=== PATIENT | female | born 1960 | race African-American/Black ===

== ENCOUNTER 2019-11-21 22:38 | Emergency (ER) | payer SELFPAY ==
[~2019-11-21] VITALS: Ht 162.6 cm; Wt 93.0 kg
--- NOTE | 2019-11-21 23:11 | Emergency Department Note ---
History of Present Illnes History of Present Illness Chief Complaint: Hypertension History of Present Illness This is a 59 year old female, with a history of hypertension, IDDM, hyperlipi demia, and hypothyroidism who presents for evaluation of elevated blood pressure and anxiety. Patient states that last night she was talking on the phone with a friend, when she became anxious and hyperventilating. She checked her blood pressure, and states that "the bottom number was 100," which made her worried and he even more anxious. Her friend talked with her, had her breathe in a paper bag, and then she listened to some relaxing music and was able to go to sleep. This evening, patient again began to feel anxious and could feel that possible panic attack was developing. She again checked her blood pressure, and the bottom number was 100, so she decided to come to the ER for evaluation. Patient took her blood pressure medicine tonight about 7:30 PM, and she denies missing any dosages. Patient admits to taking some DayQuil for sinus and allergy symptoms two days ago. I explained to the patient that this likely elevated her blood pressure, as most of these formulations contain Sudafed. Patient states that prior to these past 2 days, she had two panic attacks approximately one year ago, with no recurrent symptoms until this past weekend. Patient moved here 2 months ago from [place], and she is currently living with her cousin, her cousin's spouse and their son. She states that she has not been sleeping well lately, and she is waking up during the night after only being asleep for several hours. She then has difficulty going back to sleep. She denies any major stress, in her life right now, other than she has multiple friends who have been sick with Covid 19 and/or have family members who have been seriously ill. She admits that she may be worrying about the health of her friends, as well as herself. She denies any chest pain, tightness, shortness of breath, numbness, tingling, headache, visual changes, dizziness, or lightheadedness. Patient states that she currently feels much better, as far as her anxiety goes, but she is concerned about her blood pressure. Historian: Patient Arrival Mode: Car National Expansion Recruiter Required: No Onset (how long ago): day(s) (2) Location: generalized Quality: anxious, hyperventillating Radiation: Reports non-radiation Severity: moderate Onset quality: sudden Duration (how long): day(s) (2) Timing of current episode: sporadic Progression: partially resolved (patient only feels "slightly anxious" at this time. ) Chronicity: recurrent Context: Reports new medications (pt took OTC Dayquil 2 days ago;); Denies recent illness Relieving factors: none Exacerbating factors: none Associated symptoms: Reports denies other symptoms; Denies chest pain, Denies fever/chills, Denies headaches, Denies nausea/vomiting, Denies shortness of breath Treatments prior to arrival: none Risk factors: HTN, IDDM Past Medical/Family History Physician Review I have reviewed the patient's past medical and family history. Any updates have been documented here. Past Medical History Recent Fever: No Clinical Suspicion of Infectio: No New/Unexplained Change in Ment: No Past Medical History: Hypertension, Diabetes (IDDM), Hypothyroidism, Hyperlipedemia Past Surgical History: Hysterectomy Other Surgery: Thryroidectomy Social History Smoking Cessation: Never Smoker Alcohol Use: None Any Illegal Drug Use: No TB Exposure/Symptoms: No Physically hurt or threatened: No Family History Family history of heart diseas: No Other Last Tetanus: unknown Any Pre-Existing Lines (PICC,: No Review of Systems Review of Systems Constitutional: Denies chills, Denies fever EENTM: Denies blurred vision, Denies double vision Cardiovascular: Denies chest pain, Denies palpitations Respiratory: Reports no symptoms; Denies cough, Denies dyspnea, Denies dyspnea on exertion Gastrointestinal: Denies abdominal pain, Denies nausea, Denies vomiting Musculoskeletal: Denies muscle pain, Denies neck pain Integumentary: Denies change in color Neurological: Denies headache, Denies numbness, Denies tingling, Denies weakness Psychological: Reports anxiety (denies prevoius treatment for anxiety. She was seen in the ED last year in [place], when she had the two previous episodes;); Denies emotional problems Hematological/Lymphatic: Reports no symptoms Review of other systems: All other systems negative Physical Exam Related Data Vital signs reviewed: Yes Physical Exam CONSTITUTIONAL Constitutional: Present well-developed, Present well-nourished, Present morbidly obese HENT HENT: Present normocephalic, Present atraumatic, Present oropharynx clear/moist, Present nose normal HENT L/R: Present left ext ear normal, Present right ext ear normal EYES Eyes: Reports PERRL, Reports conjunctivae normal NECK Neck: Present ROM normal; Absent cervical adenopathy PULMONARY Pulmonary: Present effort normal, Present breath sounds normal CARDIOVASCULAR Cardiovascular: Present regular rhythm, Present heart sounds normal, Present capillary refill normal, Present normal rate, Present palpable pulses, Present LLE edema (trace pedal edema;), Present RLE edema (trace pedal edema;); Absent murmur GASTROINTESTINAL Abdominal: Present soft, Present nontender GENITOURINARY Genitourinary: Present exam deferred SKIN Skin: Present warm, Present dry MUSCULOSKELETAL Musculoskeletal: Present ROM normal; Absent tenderness NEUROLOGICAL Neurological: Present alert, Present oriented x 3; Absent cranial nerve deficit, Absent weakness PSYCHOLOGICAL Psychological: Present mood/affect normal, Present behavior normal Results Laboratory Laboratory No testing performed; Assessment & Plan Medical Decision Making MDM Patient's blood pressure came down nicely, without intervention. She did receive 1 mg of lorazepam orally, which seemed to resolve her anxiety. Patient was provided with a prescription for lorazepam, to be taken as needed. She is adv ised to discuss her anxiety, if it persists, with her new primary care provider with whom she has an appointment scheduled on 12/26/2019. Patient moved here from [place] 2 months ago. - Establish care with a PCP, as discussed, and discuss your anxiety, if it is persistent. - AVOID over the counter "sinus medications," as many contain Sudafed, which can elevate the blood pressure. - Follow a Low Sodium diet, which will help to control your blood pressure. - Take your blood pressure medications every day! Assessment & Plan Final Impression: (1) Hypothyroidism (2) IDDM (insulin dependent diabetes mellitus) (3) Anxiety (4) Hypertension Depart Disposition: HOME, SELF-detention Meds Active Scripts Lorazepam (ATIVAN) 1 Mg Tablet, 1 TAB PO BID PRN for anxiety, #20 TAB 0 Refills Prov:ARA AMIN MD 11/22/19 ARA AMIN MD Nov 21, 2019 23:11
[2019-11-21] MEDS ORDERED: LORAZEPAM 1 MG TAB PO ONE (23:45)
[2019-11-21] MEDS ORDERED: LORAZEPAM 0.5 MG TAB ONE (23:50)
[2019-11-21 23:58] VITALS: BP 143/77
[2019-11-22] MEDS ORDERED: ATIVAN1 MG PO (00:25)
== END 2019-11-22 00:45 | disposition home or self-care (01) ==
LOC: FSED 23:11
DX: I10 Essential (primary) hypertension (principal); E11.9 Type 2 diabetes mellitus without complications; E03.9 Hypothyroidism, unspecified; F41.9 Anxiety disorder, unspecified; Z82.49 Family history of ischemic heart disease and other diseases of the circulatory system
CPT/HCPCS: 99283

== ENCOUNTER 2020-01-02 22:55 | Observation (INO) | payer SELFPAY ==
[~2020-01-02] VITALS: Ht 162.6 cm; Wt 93.0 kg
[~2020-01-02 22:55] MED LIST: ATIVAN1 MG PO
--- NOTE | 2020-01-02 23:41 | Emergency Department Note ---
History of Present Illnes History of Present Illness History of Present Illness This is a 59 year old female with PMHx of HTN, DM, and anxiety who present with complaint of burning CP. States noticed blood on toilet paper after BM and shortly after that developed CP. No SOB, N/V, diaphoresis. States has had similar CP in the past which was burning. First episode 1 year ago. [facility] episodes have gradually been increasing in frequency to now 2X a week. Not exertional. Has no history of GERD. Had tater tots and chicken strips @ around 2030 tonight. No LE pain or swelling. No recent surgery. No immobilization. No recent travel. Moved here from [place] 2 years ago. Historian: Patient Arrival Mode: Car Nanotechnology Engineering Technologist Required: No Onset (how long ago): hour(s) Location: mid chest Quality: burning Radiation: Reports non-radiation Severity: moderate Onset quality: sudden Duration (how long): hour(s) Timing of current episode: constant Progression: improving Relieving factors: none Exacerbating factors: none Associated symptoms: Reports chest pain; Denies cough, Denies diaphoresis, Denies fever/chills, Denies headaches, Denies nausea/vomiting, Denies shortness of breath Past Medical/Family History Physician Review I have reviewed the patient's past medical and family history. Any updates have been documented here. Past Medical History Past Medical History: Hypertension, Diabetes, Hypothyroidism, Hyperlipedemia Past Surgical History: Hysterectomy Other Surgery: Thryroidectomy Social History Smoking Cessation: Never Smoker Family History Family history of heart diseas: Yes (Grandmother @ sometime after 60 years of age) Other Last Tetanus: unknown Review of Systems Review of Systems Constitutional: Denies chills, Denies diaphoresis, Denies fever EENTM: Reports no symptoms Cardiovascular: Reports as per HPI, Reports chest pain; Denies palpitations, Denies syncope Respiratory: Denies cough, Denies dyspnea Gastrointestinal: Denies abdominal pain, Denies constipation, Denies diarrhea, Denies nausea, Denies vomiting Genitourinary: Denies discharge Musculoskeletal: Denies joint pain, Denies muscle pain Integumentary: Denies lumps, Denies rash, Denies ecchymosis Neurological: Denies headache, Denies numbness, Denies paresthesia, Denies tingling, Denies weakness Psychological: Reports anxiety Hematological/Lymphatic: Denies easy bleeding Physical Exam Related Data Allergies: Coded Allergies: No Known Allergies (Unverified , 01/02/20) Physical Exam CONSTITUTIONAL Constitutional: Present well-developed, Present well-nourished HENT HENT: Present normocephalic, Present atraumatic, Present oropharynx clear/moist, Present nose normal HENT L/R: Present left ext ear normal, Present right ext ear normal EYES Eyes: Reports PERRL, Reports conjunctivae normal NECK Neck: Present ROM normal PULMONARY Pulmonary: Present effort normal, Present breath sounds normal; Absent respiratory distress CARDIOVASCULAR Cardiovascular: Present regular rhythm, Present heart sounds normal, Present capillary refill normal, Present normal rate, Present other (no pain with palpation of chest. Pain not reproducable with active or passive ROM without or against resistance) GASTROINTESTINAL Abdominal: Present soft, Present bowel sounds normal, Present other (Rectal: exteral hemmorhoids, non tender, no mass); Absent nontender (mild epigastric tenderness. No RUQ tenderness, no Dubois's), Absent tender, Absent guarding, Absent mass, Absent rebound GENITOURINARY SKIN Skin: Absent rash, Absent bruising MUSCULOSKELETAL Musculoskeletal: Absent edema, Absent deformity, Absent tenderness NEUROLOGICAL Neurological: Present alert, Present oriented x 3; Absent abnormal gait PSYCHOLOGICAL Psychological: Present other (anxious) Results Laboratory Lab results reviewed: Yes Laboratory comments WBC 15.5, HGB 12.9, HCT 42.3, PLT 251. GLU 146, otherwise CMP WNL, Troponin 0.05 Imaging Imaging results reviewed: Yes Impressions EXAMINATION: CXR 2 VIEW - HOPD INDICATION: chest pain COMPARISON: None FINDINGS: TUBES and LINES: None. LUNGS: Normal lung volumes. Lungs are clear. No consolidations. Probable calcified granuloma in the lower right lung. PLEURA: No pleural effusion or pneumothorax. HEART AND MEDIASTINUM: The cardiomediastinal silhouette is unremarkable. BONES AND SOFT TISSUES: No acute osseous lesion. Postsurgical changes at the thoracic inlet. UPPER ABDOMEN: No free air under the diaphragm. IMPRESSION: No acute thoracic radiographic abnormality. Signed by: Mekhi Raya MD on 01/03/2020 12:23 AM Procedures 12 Lead ECG Interpretation ECG Interpretation : ECG: ECG 1 Nanotechnology Engineering Technologist: Interpreted by ED physician Date: Jan 02, 2020 Prior ECG tracings: reviewed Rhythm: sinus tachycardia BPM: 101 QRS axis: normal ST segments normal: Yes T waves normal: Yes Clinical Impression: abnormal ECG Additional Comments LVH Stool Hemoccult Procedural steps taken: stool placed in appropriate area, developer placed on stool, developer placed on contol areas, control appropriately pos & neg Hemoccult result: negative Clinical Decision Tools HEART Score HEART Score: HEART Score Response (Comments) Value History Slightly suspicious 0 EKG Normal 0 Age 45 - 65 1 Risk factors 3 or more risk factors OR hx of CAD 2 Troponin < or = to normal limit Total 3 Assessment & Plan Medical Decision Making MDM Reviewed old chart: seen here November 2019. Did not have PCP at that time (has since established). Presented with > BP and anxiety at that time. Given benzo in ED during November visit and D/C'ed home. Today, patient with atypical burning CP that did not resolve with GI cocktail. Warrants CP rule out due to HTN and DM, Hx of SD in Grandmother, and increasing frequency of episodes. Patient with episode of blood on toilet paper after BM tonight. Guiac negative. Suspect episode due to hemorrhoids. Instructed patient to followup with GI after cardiac ruled out as source of CP. Reassessment Reassessment time: 00:12 Reassessment 00:12 pain still present after GI cocktail Assessment & Plan Final Impression: (1) Chest pain (2) Bleeding hemorrhoids (3) Diabetes (4) Hypertension (5) Anxiety (6) Hypothyroidism Depart Disposition: ADMITTED Home Meds Active Scripts Lorazepam (ATIVAN) 1 Mg Tablet, 1 TAB PO BID PRN for anxiety, #20 TAB 0 Refills Prov:ARA AMIN MD 11/22/19 SHAWN NOWAK MD Jan 02, 2020 23:41
[2020-01-02] MEDS ORDERED: FAMOTIDINE 20 MG/2 ML VIAL IV STA (23:42)
[2020-01-02] MEDS ORDERED: DONNATAL/LIDOCAINE/MAALOX 30 ML SUSP PO ONE (23:45)
[2020-01-02] MEDS ORDERED: BELLADONNA ALK/PHENOBARBITAL 5 ML UDC ONE (23:55)
[2020-01-02] MEDS ORDERED: LIDOCAINE VISC 2% SOLN 15 ML UDC ONE (23:55)
[2020-01-02] MEDS ORDERED: MAGNESIUM/ALUMINUM/SIMETHICONE 30 ML UDC ONE (23:55)
[2020-01-03] MEDS ORDERED: ASPIRIN 325 MG TAB PO ONE
--- NOTE | 2020-01-03 00:26 | Diagnostic Imaging Report ---
EXAMINATION: CXR 2 VIEW - HOPD INDICATION: chest pain COMPARISON: None FINDINGS: TUBES and LINES: None. LUNGS: Normal lung volumes. Lungs are clear. No consolidations. Probable calcified granuloma in the lower right lung. PLEURA: No pleural effusion or pneumothorax. HEART AND MEDIASTINUM: The cardiomediastinal silhouette is unremarkable. BONES AND SOFT TISSUES: No acute osseous lesion. Postsurgical changes at the thoracic inlet. UPPER ABDOMEN: No free air under the diaphragm. IMPRESSION: No acute thoracic radiographic abnormality. Signed by: Mekhi Raya MD on 01/03/2020 12:23 AM
[2020-01-03] MEDS ORDERED: ONDANSETRON HCL INJ 2MG/ML 2ML 2 MG/ML VIAL IV PRN (01:00)
[2020-01-03] MEDS ORDERED: SODIUM CHLORIDE FLUSH 10 ML SYR INJ PRN (01:00)
--- OUTSIDE RECORDS SUMMARY | 2020-01-03 01:08 | XMS REPORT ---
Author Author Jewels [facility] Organization Unknown Address Unknown Phone Unavailable Care Team Providers Care Rock Drill Operator Name Role Phone Martha Parker Unavailable PROBLEMS Condition Status Date Provider Notes Screening for std active Martha Elena Anxiety active Martha Elena Diabetes mellitus, type 2, uncontrolled active L in Elena Hypertension, uncontrolled active Martha Elena BMI 35.0-35.9 active Martha Elena Obesity active Martha Elena ENCOUNTERS Date Type Provider Location Encounter Diagn osis - Ambulatory Encounter Martha Elena Martha Elena UNK - Ambulatory Encounter Martha Elena Martha Elena [facility] UNK - Ambulatory Encounter Martha Eelna Martha Elena UNK - Ambulatory Encounter Martha Elena Martha Elena UNK - Ambulatory Encounter Martha Elena Martha D ai Maddison Ventura ObesityBMI 35.0-35.9Hyperten isac, uncontrolledDiabetes mellitus, type 2, uncontrolledAnxietyScreening for std VITAL SIGNS Date Observation Value Provider pulse rate #2 84 Maddison armstrong " blood pressure, diastolic, second observation 84 mm[Hg] Maddison Whitehead " blood pressure, systolic, second observation 154 mm[Hg] Maddison Whitehead " temperature E&M 97.9 [degF] Maddison armstrong " pulse rate 80 /min Maddison armstrong " blood pressure, diastolic 87 mm[Hg] Bunny Whitehead " blood pressure, systolic 142 mm[Hg] Maddison Whitehead " respiratory rate E&M 16 /min Maddison nicole " oxygen saturation, oximetry 97 % Akosua Whitehead " weight E&M 206.25 lbs. Maddison armstrong " weight in kilograms E&M 93.75 kg Maddison Whitehead " height E&M 64 [in_i] Maddison armstrong " height in centimeters E&M 162.56 cm Bunny Whiethead " method used to obtain blood pressure automatic Maddison Ventura " Blood Pressure Position 01 sitting Jeisonshavon urrutia Ventura " blood pressure, site #1 left arm Maddison Whitehead " temperature site oral Maddison kelly Allergies No Known Allergy Information REASON FOR REFERRAL No Information Available RESULTS Date Observation Value Provider Reference Range Interpretati on Location hepatitis B surface antigen Negative [facility] Negative " thyroid stimulating hormone, serum 0.835 u[iU]/mL [facility] 0.450-4.500 " hepatitis C antibody, serum <0.1 [facility] 0.0-0.9 " HIV-CMIA (Chemiluminescent Microparticle Immuno Assay) Non Reactive [facility] Non Reactive " rapid plasma reagin antibody, serum Non Reactive [facility] Non Reactive " hemoglobin A1C, blood, as % of total hemoglobin 8.1 % [facility] 4.8-5.6 High " microalbumin/creatinine ratio, urine 52 MG/G CREAT [facility] 0-29 High " microalbumin/total urine volume 57.3 mg/L [facility] Not Est ab. " creatinine, random, urine 109.4 mg/dL [facility] Not Estab. " LDL cholesterol, serum 45 mg/dL [facility] 0-99 " very low density lipoproteins 25 mg/dL [facility] 5-40 " HDL cholesterol, serum 45 mg/dL [facility] >39 " triglyceride, serum, fasting 123 mg/dL [facility] 0-149 " cholesterol, serum 115 mg/dL [facility] 100-199 " alanine aminotransferase (SGPT), serum 31 1/L [facility] 0-32 " aspartate aminotransferase (SGOT), serum 26 1/L [facility] 0-40 " alkaline phosphatase, serum 80 1/L [facility] 39-117 " bilirubin, serum, total 0.2 mg/dL [facility] 0.0-1.2 " albumin/globulin ratio, serum 1.8 [facility] 1.2-2.2 " globulin, serum 2.4 [facility] 1.5-4.5 " albumin, serum 4.4 g/dL [facility] 3.8-4.9 " protein, total, serum 6.8 g/dL [facility] 6.0-8.5 " calcium, serum 10.0 mg/dL [facility] 8.7-10.2 " carbon dioxide, venous blood 26 mmol/L [facility] 20-29 " chloride, serum 102 mmol/L [facility] 96-106 " potassium, serum 4.8 mmol/L [facility] 3.5-5.2 " sodium, serum 143 mmol/L [facility] 134-144 " urea nitrogen/creatinine ratio, serum 13 [facility] 9 -23 " eGFR if 76 mL/min/((173/100).m2) [facility] >59 " Estimated Glomerular Filtration Rate (calc) 66 m L/min/((173/100).m2) [facility] >59 " creatinine, serum 0.96 mg/dL [facility] 0.57-1.00 " urea nitrogen, blood 12 mg/dL [facility] 6-24 " blood glucose, random 138 mg/dL [facility] 65-99 High " immature granulocytes, percentage of total cells, bloo d 1 % [facility] Not Estab. " basophil count, absolute 0.1 x10E3/uL [facility] 0.0-0.2 " Eosinophil Absolute Count 0.3 X10E3/UL [facility] 0.0-0.4 " monocyte count, blood, automated 0.9 X10E3/UL [facility] 0.1 -0.9 " lymphocyte count, blood, automated 2.6 X10E3/UL [facility] 0 .7-3.1 " Absolute Neutrophils 9.1 X10E3/UL [facility] 1.4-7.0 High " basophils as percent of blood leukocytes 1 % [facility] Not Estab. " eosinophils as percent of blood leukocytes 2 % [facility] Not Estab. " monocytes as percent of blood leukocytes 7 % [facility] Not Estab. " lymphocytes as percent of blood leukocytes 20 % [facility] Not Estab. " neutrophils as percent of blood leukocytes 69 % [facility] Not Estab. " platelet count 266 X10E3/UL [facility] 150-450 " red blood cell distribution width 14.4 % [facility] 11.7- 15.4 " mean corpuscular hemoglobin concentration, RBC 31.7 G/DL [facility] 31.5-35.7 " mean corpuscular hemoglobin, RBC 28.3 pg [facility] 26.6-3 3.0 " mean corpuscular volume, RBC 89 fL [facility] 79-97 " hematocrit, blood 39.7 % [facility] 34.0-46.6 " hemoglobin, blood 12.6 g/dL [facility] 11.1-15.9 " erythrocyte (RBC) count 4.45 X10E6/UL [facility] 3.77-5.28 " leukocyte count, blood 13.0 X10E3/UL [facility] 3.4-10.8 Hi hemoglobin A1C, blood, as % of total hemoglobin 8.0 % L in Elena " blood glucose, fasting 148 mg/dL Maddison Whitehead HISTORY OF IMMUNIZATIONS No Information Available HISTORY OF MEDICATION USE Medication Instructions Dates Provider Comments SERTRALINE HCL 25 MG ORAL TABLET Take 1 tablet by mouth daily 29/12/19 Martha Parker JANUVIA 100 MG ORAL TABLET Take 1 tablet by mouth daily Martha Parker ASPIRIN 81 MG ORAL TABLET DELAYED RELEASE 1 by mouth every day 2 Martha Parker JARDIANCE 25 MG ORAL TABLET Take 1 tablet by mouth daily Martha Parker HYDROCHLOROTHIAZIDE 12.5 MG ORAL CAPSULE 1 by mouth every day 29/12/19 Martha Parker VALSARTAN 40 MG ORAL TABLET Take 1 tablet by mouth daily Martha Parker ROSUVASTATIN CALCIUM 20 MG ORAL TABLET Take 1 tab By Mouth t todd at bedtime Martha Parker HUMULIN R U-500 KWIKPEN 500 UNIT/ML SUBCUTANEOUS SOLUT ION PEN-INJECTOR Take 135 units AM and 85 units PM Martha Parker METFORMIN HCL 1000 MG ORAL TABLET 1 by mouth twice a day Martha Parker SOCIAL HISTORY Date Observation Value Provider family support living with cousin Martha Parker " social history reviewed E&M reviewed today Martha Parker " Exercise Program Referral T Martha Esteban i " Weight Management Counseling Provided T Martha Parker " Nutrition intervention T Martha Parker " patient considered to be homeless No Maddison Whitehead " drug use, illicit Never Maddison aguayo " alcohol use Never Maddison armstrong " is there any chance that you could be ? No Maddison Whitehead " passive cigarette smoke exposure No Maddison Whitehead " if the patient is using/has used a vaping item, Current, Former, Never Used, Not asked No Maddison Whitehead " smoking status never smoker Maddison Vargasskyler armstrong FUNCTIONAL STATUS No Information Available MENTAL STATUS Date Observation Value Provider assessment of mood and affect E&M no dep ression, anxiety, or agitation Martha Parker " mental status examination: orientation E &M oriented to time, place, and person Martha Parker " assessment of judgment and insight E&M intact Martha Parker " Generalized Anxiety Disorder Questionnaire - Que stion 2 0 Maddison Whitehead " Generalized Anxiety Disorder Questionnaire - Que stion 1 3 Maddison Whitehead MEDICAL EQUIPMENT No Information Available FAMILY HISTORY No Information Available INSURANCE PROVIDERS Payer name Policy type / Coverage type Covered part y ID Sliding Fee - Cat 1 Qlue insurance [employer] [id number] ADVANCE DIRECTIVES No Information Available TREATMENT PLAN Date Name RPR, Rfx Qn RPR/Confirm TP HIV 1/2 ANTIGEN/ANTIBODY, FO URTH GENERATION W/RFL HCV Antibody HBsAg Screen TSH Rfx on Abnormal to Free T4 Comp. Metabolic Panel (14) CBC With Differential/Platel et Lipid Panel Microalb/Creat Ratio, Randm Ur Hemoglobin A1c New Patient Detailed - 57729 HEMOGLOBIN A1C - In House HISTORY OF PROCEDURES Procedure Date Procedure Name Provider Procedure Notes Status HEMOGLOBIN A1C - In House Martha Parker Depo Provera Vi sit completed GOALS No Information Available HEALTH CONCERNS No Information Available
--- OUTSIDE RECORDS SUMMARY | 2020-01-03 01:08 | XMS REPORT | Continuity of Care Document ---
Author Author [facility] t Organization [facility] t Address [address] [place] [address] Phone Unavailable Care Team Providers Care Cardiovascular Technician Name Role Phone NO, PCP PCP Unavailable Anne BOLANOS Attphys Unavailable Martha Parker Attphys Maddison Whitehead Attphyumesh Unavailable Martha Parker Unavailable Payers Payer Name Policy Type Policy Number Effective Date Expiration Date S ource Sliding Fee - Cat 1 [id number] 2019 00:00:00 2020-12 00:00:00 [employer] [facility] Problems Condition Name Condition Details Condition Category Status Onset Date Resolution Date Last Treatment Date Treating Clinician Comments Source Screening for std Condition Active 2019-12-29 00:00:00 2019-12-29 09:37:38 Martha Parker [employer] [facility] Anxiety Condition Active 2019-12-29 00:00:00 2019-12-29 09: 37:38 Elena [employer] [facility] Diabetes mellitus, type 2, uncontrolled Condition Active 2019-12-29 00:00:00 2019-12-29 09:37:38 Martha Parker [employer] [facility] Hypertension, uncontrolled Condition Active 2019-12-29 00 :00:00 2019-12-29 09:37:38 Martha Parker [employer] [facility] BMI 35.0-35.9 Condition Active 2019-12-29 00:00:00 2019 09:37:38 Elena Te[facility] Obesity Condition Active 2019-12-29 00:00:00 2019-12-29 09: 37:38 Elena Martha [facility] Hypertension Problem Active [facility] Anxiety Problem Active [facility] Insulin dependent diabetes mellitus Problem Active [facility] Hypothyroidism Problem Active [facility] Allergies, Adverse Reactions, Alerts This patient has no known allergies or adverse reactions. Social History Social Habit Start Date Stop Date Quantity Comments Source family support 2019-12-29 08:46:52 2019-12-29 08:46:52 living with co oscar [facility] social history reviewed E&M 2019-12-29 08:46:52 2019-12-29 08:46 :52 reviewed today [facility] patient considered to be homeless 2019-12-29 08:46:52 2019-12-29 08:4 6:52 No [facility] drug use, illicit 2019-12-29 08:46:52 2019-12-29 08:46:52 Never [facility] alcohol use 2019-12-29 08:46:52 2019-12-29 08:46:52 Never [facility] is there any chance that you could be ? 2019-12-29 0 8:46:52 2019-12-29 08:46:52 No [facility] passive cigarette smoke exposure 2019-12-29 08:46:52 2019-12-29 08:46 :52 No [facility] if the patient is using/has used a vapin g item, Current, Former, Never Used, Not asked 2019-12-29 08:46:52 2019-12-29 08:46:52 No [facility] Sex Assigned At 1960 00:00:00 1960 00:00:00 Female [facility] Smoking Status Start Date Stop Date Source Never smoked tobacco (finding) L [facility] Medications Ordered Medication Name Filled Medication Name Start Date Stop Da te Current Medication? Ordering Clinician Indication Dosage Frequency Signature (SIG) Comments Components Source (SERTRALINE HCL) 25 MG TABS 2019-12-29 00:00:00 Yes Martha Elena 1{Tablet} 1xD Take 1 tablet by mouth daily [facility] (SITAGLIPTIN PHOSPHATE) 100 MG TABS 2019-12-29 00:00 :00 Yes Martha Elena 1{Tablet} 1xD Take 1 tablet by mouth daily [facility] (ASPIRIN) 81 MG [facility] 2019-12-29 00:00:00 Yes Martha Elena 1 by mouth every day [facility] JARDIANCE (EMPAGLIFLOZIN) 25 MG TABS 2019-12-29 00:00:00 Yes Martha Elena 1{Tablet} 1xD Take 1 tablet by mouth daily [facility] (HYDROCHLOROTHIAZIDE) 12.5 MG CAPS 2019-12-29 00:00:00 Y es Martha Parker 1{Capsule} 1xD 1 by mouth every day [facility] (VALSARTAN) 40 MG TABS 2019-12-29 00:00:00 Yes Martha Elena 1{Tablet} 1xD Take 1 tablet by mouth daily [facility] (ROSUVASTATIN CALCIUM) 20 MG TABS 2019-12-29 00:00:00 Yes Martha Elena Take 1 tab By Mouth take at bedtime [facility] HUMULIN R U-500 KWIKPEN (INSULIN REGULAR HUMAN) 500 UNIT/ML SOPN 2019-12-29 00:00:00 Yes Martha Elena Take 135 units AM and 85 uni ts PM [facility] (METFORMIN HCL) 1000 MG TABS 2019-12-29 00:00:00 Yes Martha Parker 1{Tablet} 2xD 1 by mouth twice a day [facility] Lorazepam (Ativan) 1 Mg TABLET Lorazepam (Ativan) 1 Mg TABLE T 2019-11-22 00:25:00 Yes 1 Twice A Day as needed for Anx [facility] Vital Signs Vital Name Observation Time Observation Value Comments Source pulse rate 2019-12-29 08:46:52 80 /min [facility] blood pressure, diastolic 2019-12-29 08:46:52 87 mm[Hg] [facility] blood pressure, systolic 2019-12-29 08:46:52 142 mm[Hg] [facility] temperature E&M 2019-12-29 08:46:52 97.9 [degF] [facility] respiratory rate E&M 2019-12-29 08:46:52 16 /min [facility] oxygen saturation, oximetry 2019-12-29 08:46:52 97 % [facility] weight E&M 2019-12-29 08:46:52 206.25 [lb_av] [facility] weight in kilograms E&M 2019-12-29 08:46:52 93.75 kg [facility] height in centimeters E&M 2019-12-29 08:46:52 162.56 cm [facility] temperature site 2019-12-29 08:46:52 oral [facility] Weight 2019-11-21 23:00:00 205 [lb_av] [facility] BMI (Body Mass Index) 2019-11-21 23:00:00 35.2 kg/m2 [facility] Procedures Procedure Date / Time Performed Performing Clinician Sour e HEMOGLOBIN A1C - In House 2019-12-29 08:58:07 Martha Parker [facility] Plan of Care Planned Activity Planned Date Details Comments Source Instructions Generalized Anxiety Disorder [facility] Instructions Hypertension [facility] Encounters Start Date/Time End Date/Time Encounter Type Admission Type Attendi [facility] Care Department Encounter ID Source 2019-12-31 00:00:00 2019-12-31 00:00:00 Office Visit Martha Parker [facility] Encounter/[id number] [facility] 2019-12-29 00:00:00 2019-12-29 00:00:00 Office Visit Martha Parker [facility] Encounter/[id number] [facility] 2019-12-29 00:00:00 2019-12-29 00:00:00 Office Visit Martha Parker [facility] Encounter/[id number] [facility] 2019-12-29 00:00:00 2019-12-29 00:00:00 Office Visit Martha Brasher [facility] Encounter/[id number] [facility] 2019-12-29 00:00:00 2019-12-29 00:00:00 Office Visit Martha Parker [facility] Encounter/[id number] [facility] 2019-11-21 23:11:00 2019-11-22 00:45:00 Departed Emergency Room [facility] [id number] [facility] Results Test Description Test Time Test Comments Results Result Comments Source CXR 2 VIEW - HOPD 2020-01-02 23:54:00 [facility] [place] [address] Patient Name: RENETTA MONTILLA MR #: [id number] : 1960 Age/Sex: 59/F Req #: [id number] [facility] Physician: Ordered by: SHAWN NOWAK MD Report #: [id number] Location: FS Room/Bed: Procedure: [id number] HOPD/CXR 2 VIEW - HOPD Exam Date: 01/02/20 Exam Time: 2340 REPORT STATUS: Signed EXAMINATION: CXR 2 VIEW - HOPD INDICATION: chest pain COMPARISON: None FINDINGS: TUBES and LINES: None. LUNGS: Normal lung volumes. Lungs are clear. No consolidations. Probable calcified granuloma in the lower right lung. PLEURA: No pleural effusion or pneumothorax. HEART AND MEDIASTINUM: The cardiomediastinal silhouette is unremarkable. BONES AND SOFT TISSUES: No acute osseous lesion. Postsurgical changes at the thoracic inlet. UPPER ABDOMEN: No free air under the diaphragm. IMPRESSION: No acute thoracic radiographic abnormality. Signed by: Yumiko Tripp MD on 01/03/2020 12:23 AM Dictated By: YUMIKO TRIPP MD Transcribed By: MOISES on 01/03/2022 COPY TO: SHAWN NOWAK MD hepatitis B surface antigen 2019-12-29 10:12:00 Test Item hepatitis B surface antigen (test code = 79) Negative Negative [facility] Healththyroid stimulating hormone, [id number] 10:12:00* Test Item Value Reference Range Interpretation Comments thyroid stimulating hormone, serum (test code = 3016-3) 0.83 5 u[iU]/mL 0.450-4.500 [facility] Healthhepatitis C antibody, [id number] 10:12:00* Test Item Value Reference Range Interpretation Comments hepatitis C antibody, serum (test code = 5199-5) <0.1 0.0-0 .9 [facility] (Chemiluminescent Microparticle Immuno Assay) 2019-12-29 10:12:00* Test Item Value Reference Range Interpretation Comments HIV-CMIA (Chemiluminescent Microparticle Immuno Assay) (test code = 184878) Non Reactive Non Reactive [facility]id plasma reagin antibody, [id number] 10:12:00* Test Item Value Reference Range Interpretation Comments rapid plasma reagin antibody, serum (test code = 5291-0) Non Reactive Non Reactive [facility]hemoglobin A1C, blood, as % of total [id number] 10:12:00* Test Item Value Reference Range Interpretation Comments hemoglobin A1C, blood, as % of total hemoglobin (test code = 4548-4) 8.1 % 4.8-5.6 H [facility]microalbumin/creatinine ratio, [id number] 10:12:00* Test Item Value Reference Range Interpretation Comments microalbumin/creatinine ratio, urine (test code = 91205-1) 52 MG/G CREAT 0-29 H [facility]microalbumin/total urine [id number] 10:12:00* Test Item Value Reference Range Interpretation Comments microalbumin/total urine volume (test code = 49110-9) 57.3 mg/L [facility]creatinine, random, [id number] 10:12:00* Test Item Value Reference Range Interpretation Comments creatinine, random, urine (test code = 2161-8) 109.4 mg/dL [facility]LDL cholesterol, [id number] 10:12:00* Test Item Value Reference Range Interpretation Comments LDL cholesterol, serum (test code = 2089-1) 45 mg/dL 0-99 [facility] low density nebrcjhnzjlt7908-59-27 10:12:00* Test Item Value Reference Range Interpretation Comments very low density lipoproteins (test code = 2091-7) 25 mg/dL 5-4 0 [facility]HDL cholesterol, [id number] 10:12:00* Test Item Value Reference Range Interpretation Comments HDL cholesterol, serum (test code = 2085-9) 45 mg/dL >39 [facility]riglycer[facility], serum, [id number] 10:12:00* Test Item Value Reference Range Interpretation Comments triglyceride, serum, fasting (test code = 2571-8) 123 mg/dL 0-14 9 [facility]cholesterol, [id number] 10:12:00* Test Item Value Reference Range Interpretation Comments cholesterol, serum (test code = 2093-3) 115 mg/dL 100-199 [facility]alanine aminotransferase (SGPT), [id number] 10:12:00 * Test Item Value Reference Range Interpretation Comments alanine aminotransferase (SGPT), serum (test code = 1742-6) 31 1/L 0-32 [facility] Healthaspartate aminotransferase (SGOT), [id number] 10:12:00* Test Item Value Reference Range Interpretation Comments aspartate aminotransferase (SGOT), serum (test code = 1920-8) 26 1/ L 0-40 [facility]alkaline phosphatase, [id number] 10:12:00* Test Item Value Reference Range Interpretation Comments alkaline phosphatase, serum (test code = 1783-0) 80 1/L 39-11 7 [facility]bilirubin, serum, [id number] 10:12:00* Test Item Value Reference Range Interpretation Comments bilirubin, serum, total (test code = 1975-2) 0.2 mg/dL 0.0-1.2 [facility] Healthalbumin/globulin ratio, [id number] 10:12:00* Test Item Value Reference Range Interpretation Comments albumin/globulin ratio, serum (test code = 1759-0) 1.8 1.2 -2.2 [facility] Healthglobulin, [id number] 10:12:00* Test Item Value Reference Range Interpretation Comments globulin, serum (test code = 2336-6) 2.4 1.5-4.5 [facility] Healthalbumin, [id number] 10:12:00* Test Item Value Reference Range Interpretation Comments albumin, serum (test code = 1751-7) 4.4 g/dL 3.8-4.9 [facility]protein, total, [id number] 10:12:00* Test Item Value Reference Range Interpretation Comments protein, total, serum (test code = 2885-2) 6.8 g/dL 6.0-8.5 [facility] Healthcalcium, [id number] 10:12:00* Test Item Value Reference Range Interpretation Comments calcium, serum (test code = 2000-8) 10.0 mg/dL 8.7-10.2 [facility]carbon dioxide, venous [id number] 10:12:00* Test Item Value Reference Range Interpretation Comments carbon dioxide, venous blood (test code = 2027-1) 26 mmol/L 20-2 9 [facility] Healthchloride, [id number] 10:12:00* Test Item Value Reference Range Interpretation Comments chloride, serum (test code = 2075-0) 102 mmol/L 96-106 [facility]potassium, [id number] 10:12:00* Test Item Value Reference Range Interpretation Comments potassium, serum (test code = 2823-3) 4.8 mmol/L 3.5-5.2 [facility] Healthsodium, [id number] 10:12:00* Test Item Value Reference Range Interpretation Comments sodium, serum (test code = 2951-2) 143 mmol/L 134-144 [facility] Healthurea nitrogen/creatinine ratio, [id number] 10:12:00 * Test Item Value Reference Range Interpretation Comments urea nitrogen/creatinine ratio, serum (test code = 3097-3) 13 9-23 [facility] HealtheGFR if Tglnimqy1179-41-18 10:12:00* Test Item Value Reference Range Interpretation Comments eGFR if (test code = 90932-7) 76 mL/min/((173/100) .m2) >59 [facility] HealthEstimated Glomerular Filtration Rate (calc)2019-12-29 10:12:00* Test Item Value Reference Range Interpretation Comments Estimated Glomerular Filtration Rate (calc) (test code = 38879-1) 66 mL/min/((173/100).m2) >59 [facility]creatinine, [id number] 10:12:00* Test Item Value Reference Range Interpretation Comments creatinine, serum (test code = 2160-0) 0.96 mg/dL 0.57-1.00 [facility] Healthurea nitrogen, [id number] 10:12:00* Test Item Value Reference Range Interpretation Comments urea nitrogen, blood (test code = 3094-0) 12 mg/dL 6-24 [facility]blood glucose, [id number] 10:12:00* Test Item Value Reference Range Interpretation Comments blood glucose, random (test code = 2339-0) 138 mg/dL 65-99 H [facility] Healthimmature granulocytes, percentage of total cells, blood 2019-12-29 10:12:00* Test Item Value Reference Range Interpretation Comments immature granulocytes, percentage of total cells, bloo d (test code = 53046-5) 1 % [facility] Healthbasophil count, [id number] 10:12:00* Test Item Value Reference Range Interpretation Comments basophil count, absolute (test code = 73009-4) 0.1 x10E3/uL 0.0-0.2 [facility] HealthEosinophil Absolute [id number] 10:12:00* Test Item Value Reference Range Interpretation Comments Eosinophil Absolute Count (test code = 61627-4) 0.3 X10E3/UL 0.0-0. 4 [facility] Healthmonocyte count, blood, ymnhlmhzx3737-28-87 10:12:00* Test Item Value Reference Range Interpretation Comments monocyte count, blood, automated (test code = 742-7) 0.9 X10E3/UL 0 .1-0.9 [facility]lymphocyte count, blood, czchafqze3707-23-86 10:12:00* Test Item Value Reference Range Interpretation Comments lymphocyte count, blood, automated (test code = 731-0) 2.6 X10E3/UL 0.7-3.1 [facility] HealthAbsolute Pyocrzbvwwx3057-04-67 10:12:00* Test Item Value Reference Range Interpretation Comments Absolute Neutrophils (test code = 62781-4) 9.1 X10E3/UL 1.4-7.0 H [facility] Healthbasophils as percent of blood beeiaseeue3281-43-01 10:12:00* Test Item Value Reference Range Interpretation Comments basophils as percent of blood leukocytes (test code = 707-0) 1 % [facility]altheosinophils as percent of blood woktovycml0033-76-86 10:12:00* Test Item Value Reference Range Interpretation Comments eosinophils as percent of blood leukocytes (test code = 713-8) 2 % [facility] Healthmonocytes as percent of blood aoxytemalg1613-73-98 10:12:00* Test Item Value Reference Range Interpretation Comments monocytes as percent of blood leukocytes (test code = 5905-5) 7 % [facility] Healthlymphocytes as percent of blood vbrdvufkbr9744-08-10 10:12:00* Test Item Value Reference Range Interpretation Comments lymphocytes as percent of blood leukocytes (test code = 736-9) 20 % [facility] Healthneutrophils as percent of blood qdnyppwwbb8710-77-47 10:12:00* Test Item Value Reference Range Interpretation Comments neutrophils as percent of blood leukocytes (test code = 770-8) 69 % [facility] Healthplatelet [id number] 10:12:00* Test Item Value Reference Range Interpretation Comments platelet count (test code = 777-3) 266 X10E3/UL 150-450 [facility] Healthred blood cell distribution [id number] 10:12:00* Test Item Value Reference Range Interpretation Comments red blood cell distribution width (test code = 788-0) 14.4 % 11.7-15.[address] [facility] corpuscular hemoglobin concentration, [id number] 10:12:00* Test Item Value Reference Range Interpretation Comments mean corpuscular hemoglobin concentration, RBC (test code = 786-4) 31.7 G/DL 31.5-35.[address] [facility] corpuscular hemoglobin, [id number] 10:12:00* Test Item Value Reference Range Interpretation Comments mean corpuscular hemoglobin, RBC (test code = 785-6) 28.3 pg 2 6.6-33.[address] [facility] corpuscular volume, [id number] 10:12:00* Test Item Value Reference Range Interpretation Comments mean corpuscular volume, RBC (test code = 787-2) 89 fL 79-97 [facility]hematocrit, [id number] 10:12:00* Test Item Value Reference Range Interpretation Comments hematocrit, blood (test code = 4544-3) 39.7 % 34.0-46.6 [facility]hemoglobin, [id number] 10:12:00* Test Item Value Reference Range Interpretation Comments hemoglobin, blood (test code = 718-7) 12.6 g/dL 11.1-15.9 [facility] Healtherythrocyte (RBC) [id number] 10:12:00* Test Item Value Reference Range Interpretation Comments erythrocyte (RBC) count (test code = 789-8) 4.45 X10E6/UL 3.77-5.28 [facility] Healthleukocyte count, bimji8358-81-04 10:12:00* Test Item Value Reference Range Interpretation Comments leukocyte count, blood (test code = 6690-2) 13.0 X10E3/UL 3.4-10.8 H [facility] Healthhemoglobin A1C, blood, as % of total opztnzwgqv5556-99-91 08:46:52* Test Item Value Reference Range Interpretation Comments hemoglobin A1C, blood, as % of total hemoglobin (test code = 4548-4 ) 8.0 % [facility]blood glucose, yvjyysi4643-44-47 08:46:52* Test Item Value Reference Range Interpretation Comments blood glucose, fasting (test code = 7) 148 mg/dL [facility]
[2020-01-03] MEDS: FAMOTIDINE 20 MG TAB PO SCH ×2 (01:11→13:14)
--- OUTSIDE RECORDS SUMMARY | 2020-01-03 01:11 | XMS REPORT | Continuity of Care Document ---
Author Author [facility] t Organization [facility] t Address [address] [place] [address] Phone Unavailable Care Team Providers Care Octave Board Assembler Name Role Phone NO, PCP PCP Unavailable Anne BOLANOS Attphys Unavailable Martha Parker Attphys Maddison Whitehead Attphyumesh Unavailable Martha Parker Unavailable Payers Payer Name Policy Type Policy Number Effective Date Expiration Date S ource Sliding Fee - Cat 1 [id number] 2019 00:00:00 2020-12 00:00:00 [facility] Problems Condition Name Condition Details Condition Category Status Onset Date Resolution Date Last Treatment Date Treating Clinician Comments Source Screening for std Condition Active 2019-12-29 00:00:00 2019-12-29 09:37:38 Martha Parker [facility] Anxiety Condition Active 2019-12-29 00:00:00 2019-12-29 09: 37:38 Elena [facility] Diabetes mellitus, type 2, uncontrolled Condition Active 2019-12-29 00:00:00 2019-12-29 09:37:38 Martha Parker [facility] Hypertension, uncontrolled Condition Active 2019-12-29 00 :00:00 2019-12-29 09:37:38 Martha Parker [facility] BMI 35.0-35.9 Condition Active 2019-12-29 00:00:00 2019 09:37:38 Elena [facility] Obesity Condition Active 2019-12-29 00:00:00 2019-12-29 09: 37:38 Elena Martha [facility] Hypertension Problem Active [facility] Anxiety Problem Active [facility] Insulin dependent diabetes mellitus Problem Active [facility] Hypothyroidism Problem Active [facility] Allergies, Adverse Reactions, Alerts This patient has no known allergies or adverse reactions. Social History Social Habit Start Date Stop Date Quantity Comments Source family support 2019-12-29 08:46:52 2019-12-29 08:46:52 living with co oscar [facility] social history reviewed E&M 2019-12-29 08:46:52 2019-12-29 08:46 :52 reviewed today [facility] patient considered to be homeless 2019-12-29 08:46:52 2019-12-29 08:4 6:52 No [facility] drug use, illicit 2019-12-29 08:46:52 2019-12-29 08:46:52 Never [facility] alcohol use 2019-12-29 08:46:52 2019-12-29 08:46:52 Never [facility] is there any chance that you could be ? 2019-12-29 0 8:46:52 2019-12-29 08:46:52 No [facility] passive cigarette smoke exposure 2019-12-29 08:46:52 2019-12-29 08:46 :52 No [facility] if the patient is using/has used a vapin g item, Current, Former, Never Used, Not asked 2019-12-29 08:46:52 2019-12-29 08:46:52 No [facility] Sex Assigned At 1960 00:00:00 1960 00:00:00 Female [facility] Smoking Status Start Date Stop Date Source Never smoked tobacco (finding) L [facility] Medications Ordered Medication Name Filled Medication Name Start Date Stop Da te Current Medication? Ordering Clinician Indication Dosage Frequency Signature (SIG) Comments Components Source (SERTRALINE HCL) 25 MG TABS 2019-12-29 00:00:00 Yes Martha Elena 1{Tablet} 1xD Take 1 tablet by mouth daily [facility] Encision (SITAGLIPTIN PHOSPHATE) 100 MG TABS 2019-12-29 00:00 :00 Yes Martha Elena 1{Tablet} 1xD Take 1 tablet by mouth daily [facility] (ASPIRIN) 81 MG [facility] 2019-12-29 00:00:00 Yes Martha Elena 1 by mouth every day [facility] JARDIANCE (EMPAGLIFLOZIN) 25 MG TABS 2019-12-29 00:00:00 Yes Martha Elena 1{Tablet} 1xD Take 1 tablet by mouth daily [facility] (HYDROCHLOROTHIAZIDE) 12.5 MG CAPS 2019-12-29 00:00:00 Y es Martha Parker 1{Capsule} 1xD 1 by mouth every day [facility] (VALSARTAN) 40 MG TABS 2019-12-29 00:00:00 Yes Martha Elena 1{Tablet} 1xD Take 1 tablet by mouth daily [facility] (ROSUVASTATIN CALCIUM) 20 MG TABS 2019-12-29 00:00:00 Yes Martha Elena Take 1 tab By Mouth take at bedtime Replaced by [facility] HUMULIN R U-500 KWIKPEN (INSULIN REGULAR HUMAN) 500 UNIT/ML SOPN 2019-12-29 00:00:00 Yes Martha Elena Take 135 units AM and 85 uni ts PM [facility] (METFORMIN HCL) 1000 MG TABS 2019-12-29 00:00:00 Yes Martha Parker 1{Tablet} 2xD 1 by mouth twice a day Replaced by [facility] Lorazepam (Ativan) 1 Mg TABLET Lorazepam (Ativan) 1 Mg TABLE T 2019-11-22 00:25:00 Yes 1 Twice A Day as needed for Anx [facility] Vital Signs Vital Name Observation Time Observation Value Comments Source pulse rate 2019-12-29 08:46:52 80 /min [facility] blood pressure, diastolic 2019-12-29 08:46:52 87 mm[Hg] [facility] blood pressure, systolic 2019-12-29 08:46:52 142 mm[Hg] [facility] temperature E&M 2019-12-29 08:46:52 97.9 [degF] [facility] respiratory rate E&M 2019-12-29 08:46:52 16 /min [facility] oxygen saturation, oximetry 2019-12-29 08:46:52 97 % [facility] weight E&M 2019-12-29 08:46:52 206.25 [lb_av] [facility] weight in kilograms E&M 2019-12-29 08:46:52 93.75 kg [facility] height in centimeters E&M 2019-12-29 08:46:52 162.56 cm [facility] temperature site 2019-12-29 08:46:52 oral [facility] Weight 2019-11-21 23:00:00 205 [lb_av] [facility] BMI (Body Mass Index) 2019-11-21 23:00:00 35.2 kg/m2 [facility] Procedures Procedure Date / Time Performed Performing Clinician Sour e HEMOGLOBIN A1C - In House 2019-12-29 08:58:07 Martha Parker [facility] Plan of Care Planned Activity Planned Date Details Comments Source Instructions Generalized Anxiety Disorder [facility] Instructions Hypertension [facility] Encounters Start Date/Time End Date/Time Encounter Type Admission Type Attendi [facility] Care Department Encounter ID Source 2019-12-31 00:00:00 2019-12-31 00:00:00 Office Visit Martha Parker [facility] Encounter/[id number] [facility] 2019-12-29 00:00:00 2019-12-29 00:00:00 Office Visit Martha Parker [facility] Encounter/[id number] [facility] 2019-12-29 00:00:00 2019-12-29 00:00:00 Office Visit Martha Parker [facility] Encounter/[id number] [facility] 2019-12-29 00:00:00 2019-12-29 00:00:00 Office Visit Martha Brasher [facility] Encounter/[id number] [facility] 2019-12-29 00:00:00 2019-12-29 00:00:00 Office Visit Martha Parker [facility] Encounter/[id number] [facility] 2019-11-21 23:11:00 2019-11-22 00:45:00 Departed Emergency Room [facility] [id number] [facility] Results Test Description Test Time Test Comments Results Result Comments Source CXR 2 VIEW - HOPD 2020-01-02 23:54:00 [facility] [place] [address] Patient Name: RENETTA MONTILLA MR #: [id number] : 1960 Age/Sex: 59/F Req #: [id number] [facility] Physician: Ordered by: SHAWN NOWAK MD Report #: [id number] Location: FS Room/Bed: Procedure: [id number] HOPD/CXR 2 VIEW - HOPD Exam Date: [...] (test code = 79) Negative Negative [facility] He[facility] hormone, [id number] 10:12:00* Test Item Value Reference Range Interpretation Comments thyroid stimulating hormone, serum (test code = 3016-3) 0.83 5 u[iU]/mL 0.450-4.500 [facility] Healthhepatitis C antibody, [id number] 10:12:00* Test Item Value Reference Range Interpretation Comments hepatitis C antibody, serum (test code = 5199-5) <0.1 0.0-0 .9 [facility] (Chemiluminescent Microparticle Immuno Assay) 2019-12-29 10:12:00* Test Item Value Reference Range Interpretation Comments HIV-CMIA (Chemiluminescent Microparticle Immuno Assay) (test code = 428991) Non Reactive Non Reactive [facility] plasma reagin antibody, [id number] 10:12:00* Test Item Value Reference Range Interpretation Comments rapid plasma reagin antibody, serum (test code = 5291-0) Non Reactive Non Reactive [facility] A1C, blood, as % of total afjoekspuc8754-66-33 10:12:00* Test Item Value Reference Range Interpretation Comments hemoglobin A1C, blood, as % of total hemoglobin (test code = 4548-4) 8.1 % 4.8-5.6 H [facility]/creatinine ratio, fqvnc3627-96-84 10:12:00* Test Item Value Reference Range Interpretation Comments microalbumin/creatinine ratio, urine (test code = 80964-7) 52 MG/G CREAT 0-29 H [facility]/total urine mkorym6390-52-40 10:12:00* Test Item Value Reference Range Interpretation Comments microalbumin/total urine volume (test code = 89494-3) 57.3 mg/L [facility]creatinine, random, [id number] 10:12:00* Test Item Value Reference Range Interpretation Comments creatinine, random, urine (test code = 2161-8) 109.4 mg/dL [facility]LDL cholesterol, [id number] 10:12:00* Test Item Value Reference Range Interpretation Comments LDL cholesterol, serum (test code = 2089-1) 45 mg/dL 0-99 [facility] low density nidgvpvraxuz6255-78-56 10:12:00* Test Item Value Reference Range Interpretation Comments very low density lipoproteins (test code = 2091-7) 25 mg/dL 5-4 0 [facility]HDL cholesterol, maema8132-07-11 10:12:00* Test Item Value Reference Range Interpretation Comments HDL cholesterol, serum (test code = 2085-9) 45 mg/dL >39 [facility]trig[facility]ide, serum, orvgjsk6929-80-86 10:12:00* Test Item Value Reference Range Interpretation Comments triglyceride, serum, fasting (test code = 2571-8) 123 mg/dL 0-14 9 [facility]cholesterol, [id number] 10:12:00* Test Item Value Reference Range Interpretation Comments cholesterol, serum (test code = 2093-3) 115 mg/dL 100-199 [facility]alanine aminotransferase (SGPT), [id number] 10:12:00 * Test Item Value Reference Range Interpretation Comments alanine aminotransferase (SGPT), serum (test code = 1742-6) 31 1/L 0-32 [facility] Hospitalaspartate aminotransferase (SGOT), szjrn6712-57-18 10:12:00* Test Item Value Reference Range Interpretation Comments aspartate aminotransferase (SGOT), serum (test code = 1920-8) 26 1/ L 0-40 [facility] Hospitalalkaline phosphatase, fdmtn7551-20-33 10:12:00* Test Item Value Reference Range Interpretation Comments alkaline phosphatase, serum (test code = 1783-0) 80 1/L 39-11 7 [facility]bilirubin, serum, znpvu1301-31-07 10:12:00* Test Item Value Reference Range Interpretation Comments bilirubin, serum, total (test code = 1975-2) 0.2 mg/dL 0.0-1.2 [facility]albumin/globulin ratio, qnsaw1567-89-48 10:12:00* Test Item Value Reference Range Interpretation Comments albumin/globulin ratio, serum (test code = 1759-0) 1.8 1.2 -2.2 [facility] Healthglobulin, [id number] 10:12:00* Test Item Value Reference Range Interpretation Comments globulin, serum (test code = 2336-6) 2.4 1.5-4.5 [facility] Healthalbumin, efeoi9396-45-71 10:12:00* Test Item Value Reference Range Interpretation Comments albumin, serum (test code = 1751-7) 4.4 g/dL 3.8-4.9 [facility]protein, total, gaarq2131-08-11 10:12:00* Test Item Value Reference Range Interpretation Comments protein, total, serum (test code = 2885-2) 6.8 g/dL 6.0-8.5 [facility]calcium, tukta5678-69-80 10:12:00* Test Item Value Reference Range Interpretation Comments calcium, serum (test code = 2000-8) 10.0 mg/dL 8.7-10.2 [facility]carbon dioxide, venous yovzr3354-84-49 10:12:00* Test Item Value Reference Range Interpretation Comments carbon dioxide, venous blood (test code = 2027-1) 26 mmol/L 20-2 9 [facility] Healthchloride, nyiaz1480-46-66 10:12:00* Test Item Value Reference Range Interpretation Comments chloride, serum (test code = 2075-0) 102 mmol/L 96-106 [facility]potassium, faqxt8111-31-76 10:12:00* Test Item Value Reference Range Interpretation Comments potassium, serum (test code = 2823-3) 4.8 mmol/L 3.5-5.2 [facility]alsodium, ykoeh6912-68-74 10:12:00* Test Item Value Reference Range Interpretation Comments sodium, serum (test code = 2951-2) 143 mmol/L 134-144 [facility] Hospitalurea nitrogen/creatinine ratio, wekcw2228-58-45 10:12:00 * Test Item Value Reference Range Interpretation Comments urea nitrogen/creatinine ratio, serum (test code = 3097-3) 13 9-23 [facility] HealtheGFR if Bjqxppxj1177-32-50 10:12:00* Test Item Value Reference Range Interpretation Comments eGFR if (test code = 74929-4) 76 mL/min/((173/100) .m2) >59 [facility] HospitalEstimated Glomerular Filtration Rate (calc)2019-12-29 10:12:00* Test Item Value Reference Range Interpretation Comments Estimated Glomerular Filtration Rate (calc) (test code = 14820-3) 66 mL/min/((173/100).m2) >59 [facility] Hospitalcreatinine, lcvxc8220-25-19 10:12:00* Test Item Value Reference Range Interpretation Comments creatinine, serum (test code = 2160-0) 0.96 mg/dL 0.57-1.00 [facility] Hospitalurea nitrogen, zfbbl6337-72-37 10:12:00* Test Item Value Reference Range Interpretation Comments urea nitrogen, blood (test code = 3094-0) 12 mg/dL 6-24 [facility]blood glucose, pynmea2109-09-27 10:12:00* Test Item Value Reference Range Interpretation Comments blood glucose, random (test code = 2339-0) 138 mg/dL 65-99 H [facility] Hospitalimmature granulocytes, percentage of total cells, blood 2019-12-29 10:12:00* Test Item Value Reference Range Interpretation Comments immature granulocytes, percentage of total cells, bloo d (test code = 31691-4) 1 % [facility] Hospitalbasophil count, aehnhaae9262-51-50 10:12:00* Test Item Value Reference Range Interpretation Comments basophil count, absolute (test code = 95091-1) 0.1 x10E3/uL 0.0-0.2 [facility] HospitalEosinophil Absolute Regkn2152-15-00 10:12:00* Test Item Value Reference Range Interpretation Comments Eosinophil Absolute Count (test code = 99421-0) 0.3 X10E3/UL 0.0-0. 4 [facility] Hospitalmonocyte count, blood, ellunkdgn2782-25-99 10:12:00* Test Item Value Reference Range Interpretation Comments monocyte count, blood, automated (test code = 742-7) 0.9 X10E3/UL 0 .1-0.9 [facility] Hospitallymphocyte count, blood, iemndqmaj5019-98-50 10:12:00* Test Item Value Reference Range Interpretation Comments lymphocyte count, blood, automated (test code = 731-0) 2.6 X10E3/UL 0.7-3.1 [facility] HospitalAbsolute Gwbrdupxtdv8893-01-45 10:12:00* Test Item Value Reference Range Interpretation Comments Absolute Neutrophils (test code = 33099-4) 9.1 X10E3/UL 1.4-7.0 H [facility] Hospitalbasophils as percent of blood jjslhzaltv6707-97-97 10:12:00* Test Item Value Reference Range Interpretation Comments basophils as percent of blood leukocytes (test code = 707-0) 1 % [facility] Hospitaleosinophils as percent of blood ldteusfxvp4505-27-17 10:12:00* Test Item Value Reference Range Interpretation Comments eosinophils as percent of blood leukocytes (test code = 713-8) 2 % [facility] Healthmonocytes as percent of blood pifqqatjfi9638-87-81 10:12:00* Test Item Value Reference Range Interpretation Comments monocytes as percent of blood leukocytes (test code = 5905-5) 7 % [facility] Hospitallymphocytes as percent of blood bohamanhiu7470-43-50 10:12:00* Test Item Value Reference Range Interpretation Comments lymphocytes as percent of blood leukocytes (test code = 736-9) 20 % [facility] Hospitalneutrophils as percent of blood vidlgisqgl5389-99-63 10:12:00* Test Item Value Reference Range Interpretation Comments neutrophils as percent of blood leukocytes (test code = 770-8) 69 % [facility] Hospitalplatelet rznfg1186-81-15 10:12:00* Test Item Value Reference Range Interpretation Comments platelet count (test code = 777-3) 266 X10E3/UL 150-450 [facility] Hospitalred blood cell distribution lgrqx2788-53-68 10:12:00* Test Item Value Reference Range Interpretation Comments red blood cell distribution width (test code = 788-0) 14.4 % 11.7-15.4 [facility] corpuscular hemoglobin concentration, OHP1258-09-14 10:12:00* Test Item Value Reference Range Interpretation Comments mean corpuscular hemoglobin concentration, RBC (test code = 786-4) 31.7 G/DL 31.5-35.7 [facility] corpuscular hemoglobin, [id number] 10:12:00* Test Item Value Reference Range Interpretation Comments mean corpuscular hemoglobin, RBC (test code = 785-6) 28.3 pg 2 6.6-33.0 [facility] corpuscular volume, [id number] 10:12:00* Test Item Value Reference Range Interpretation Comments mean corpuscular volume, RBC (test code = 787-2) 89 fL 79-97 [facility] Hospitalhematocrit, jqfdd1250-95-81 10:12:00* Test Item Value Reference Range Interpretation Comments hematocrit, blood (test code = 4544-3) 39.7 % 34.0-46.6 [facility] Hospitalhemoglobin, xurkf6407-10-23 10:12:00* Test Item Value Reference Range Interpretation Comments hemoglobin, blood (test code = 718-7) 12.6 g/dL 11.1-15.9 [facility] Hospitalerythrocyte (RBC) qjgkx9273-11-42 10:12:00* Test Item Value Reference Range Interpretation Comments erythrocyte (RBC) count (test code = 789-8) 4.45 X10E6/UL 3.77-5.28 [facility] Hospitalleukocyte count, ilqgr3780-71-10 10:12:00* Test Item Value Reference Range Interpretation Comments leukocyte count, blood (test code = 6690-2) 13.0 X10E3/UL 3.4-10.8 H [facility] Hospitalhemoglobin A1C, blood, as % of total rqdchmfllc1621-24-06 08:46:52* Test Item Value Reference Range Interpretation Comments hemoglobin A1C, blood, as % of total hemoglobin (test code = 4548-4 ) 8.0 % [facility]blood glucose, szjxghm4123-75-37 08:46:52* Test Item Value Reference Range Interpretation Comments blood glucose, fasting (test code = 7) 148 mg/dL [facility]
[2020-01-03] MEDS ORDERED: HYDROCHLOROTHIA25 MG (01:53)
[2020-01-03] MEDS ORDERED: JARDIANCE25 MG (01:53)
[2020-01-03] MEDS ORDERED: CRESTOR10 MG PO (01:53)
[2020-01-03] MEDS ORDERED: ASPIRIN81 MG (01:53)
[2020-01-03] MEDS ORDERED: [UNRECOGNIZED DRUG - OTHER] PO (01:53)
[2020-01-03] MEDS ORDERED: METFORMIN HCL500 M2 PO (01:53)
[2020-01-03] MEDS ORDERED: JANUVIA100 MG PO (01:53)
[2020-01-03] MEDS ORDERED: ZOLOFT50 MG (01:53)
[2020-01-03] MEDS ORDERED: HUMULIN R100 UNIT/2 SQ (02:04)
[2020-01-03] MEDS ORDERED: HUMULIN R100 UNIT/2 SC (02:04)
--- NOTE | 2020-01-03 02:30 | NUR ---
NEW ADMISSION FROM [facility].ADMISSION ASSESSMENT DONE.AAOX4.SELF AMBULATES.ORIENTED TO THE UNIT.TELE #[address]IV TO R AC IS PATENT.BED LOCKED AND IN LOWEST POSITION.SIDE RAILS X2 UP.CALL LIGHT WITHIN REACH.COVID TEST REPORT IS PENDING.PT DENIED ANY FURTHER NEEDS.
[2020-01-03 02:45] VITALS: BP 140/85
[2020-01-03 03:06] VITALS: BP 140/85
--- NOTE | 2020-01-03 05:00 | NUR ---
RESTING IN THE BED.NO CHEST PAIN VOICED.
--- NOTE | 2020-01-03 06:45 | NUR ---
CONSULTS CALLED AND SPOKE TO .
--- NOTE | 2020-01-03 07:00 | NUR ---
REPORT GIVEN TO ONCOMING RN.STABLE CONDITION.
[2020-01-03 07:45] VITALS: BP 143/88
[2020-01-03 07:55] VITALS: BP 143/88
[2020-01-03] MEDS ORDERED: ASPIRIN 325 MG TAB EC PO SCH (09:00)
[2020-01-03] MEDS ORDERED: METOPROLOL SUCCINATE 25 MG TAB XL PO SCH ×2 (10:00)
[2020-01-03 10:29] LABS: CREATINE KINASE MB 1.6 ng/mL (0-5.0)
--- NOTE | 2020-01-03 11:03 | Consultation ---
DATE OF CONSULTATION: 01/03/2020 Cardiology Consultation ADDITIONAL REFERRING PHYSICIAN: Nakita Shin MD. REASON FOR CONSULTATION: Chest discomfort. HISTORY OF PRESENT ILLNESS: A 59-year-old woman with history of morbid obesity, diabetes mellitus, and hypertension, presents via the emergency department after she was noted to have bloody stools. She got anxious and felt her blood pressure was up and decided to go to the ER. Incidentally, she does note she has had chest discomfort in the upper mid chest, pressure like, worse with movement of upper extremities or with sitting upright or movements of the chest wall. Unaffected by changes in exercise/exertion. Symptoms have been constant for over one week and they are mild. REVIEW OF SYSTEMS: A 12-system review negative except for as noted above. PAST MEDICAL HISTORY: As per HPI. SOCIAL HISTORY: No smoking, alcohol, or drugs. FAMILY HISTORY: Noncontributory. PHYSICAL EXAMINATION: VITAL SIGNS: Temperature 98.4, heart rate 93, blood pressure 143/88, respiratory rate 18, and O2 saturation 100%. GENERAL: No acute distress. Alert, active. NECK: No JVD. No carotid bruit. CHEST: Clear to auscultation. CARDIOVASCULAR: Regular rate and rhythm. Normal S1 and S2. No S3. No S4. ABDOMEN: Soft. Bowel sounds positive. EXTREMITIES: No edema. CARDIOVASCULAR MEDICATIONS: Reviewed. STUDIES: Reviewed. EKG reviewed. ASSESSMENT AND PLAN: A 59-year-old woman presents with atypical chest discomfort with musculoskeletal features. She has diabetes, hypertension, and reported bleeding per rectum. RECOMMEND: 1. Monitor H and H. 2. Trend cardiac enzymes and rule out for AMI. 3. Obtain echocardiogram. 4. Trial analgesic, consider lidocaine patch topical. Symptoms seemed musculoskeletal and nonanginal in pattern. [facility] If negative cardiac enzymes, improvement with analgesics and on lidocaine patch and preserved ventricular systolic function on echocardiogram, okay to discharge with outpatient followup including outpatient stress test. MD JAZMIN Agarwal/MIRYAM /[id number]
[2020-01-03 11:40] VITALS: BP 124/75
[2020-01-03] MEDS ORDERED: CRESTOR 10MG PO SCH (21:00)
[2020-01-04] MEDS ORDERED: LIDOCAINE 4% PATCH TP SCH (09:00)
== END 2020-01-03 18:20 | disposition home or self-care (01) ==
LOC: FSED 22:58 → ERHOLD 01-03 01:08 → MED/SURG3 01-03 02:22
PROVIDERS: ADMIT Internal Medicine; ATTEND Internal Medicine
DX: R07.89 Other chest pain (principal); I10 Essential (primary) hypertension; E11.9 Type 2 diabetes mellitus without complications; F41.9 Anxiety disorder, unspecified; E03.9 Hypothyroidism, unspecified; E78.5 Hyperlipidemia, unspecified; E89.0 Postprocedural hypothyroidism; Z82.49 Family history of ischemic heart disease and other diseases of the circulatory system; K64.9 Unspecified hemorrhoids; E66.01 Morbid (severe) obesity due to excess calories; Z11.59 Encounter for screening for other viral diseases; Z68.35 Body mass index [BMI] 35.0-35.9, adult; Z79.82 Long term (current) use of aspirin; Z79.4 Long term (current) use of insulin
CPT/HCPCS: 36415; 71046; 80053; 82550; 82553; 82948; 84484; 85025; 93005; 99284; G0378; U0002